=== PATIENT | female | born 1995 | race American Indian/Alaskan Native ===

== ENCOUNTER 2017-11-18 12:30 | Emergency (ER) | payer MEDICAID ==
[2017-11-18 12:35] VITALS: PULSE 72; TEMP 98.7
--- NOTE | 2017-11-18 13:17 | C.PDOC ---
History Of Present Illness 22 y/o F p/w gingival swelling and pain that was gradual in onset but really began to hurt patient last night. She denies fever, chills, drooling, or trauma. States she has had teeth pulled in past and does not regularly see dentist. Time Seen by Provider: 11/18/17 12:43 Chief Complaint (Nursing): ENT Problem Past Medical History Vital Signs: Last Vital Signs Temp 98.7 F 11/18/17 12:33 Pulse 72 11/18/17 12:33 Resp 18 11/18/17 12:33 BP 110/74 11/18/17 12:33 Pulse Ox 100 11/18/17 12:33 - [facility] Procedures REMOV INTRALUM VAG FB (02/19/13) Family History: States: Unknown Family Hx - Social History Hx Tobacco Use: No Hx Alcohol Use: Yes Hx Substance Use: No - Immunization History Hx Tetanus Toxoid Vaccination: No Hx Influenza Vaccination: No Hx Pneumococcal Vaccination: No Review Of Systems Except As Marked, All Systems Reviewed And Found Negative. Constitutional: Negative for: Fever Respiratory: Negative for: Shortness of Breath Physical Exam - Physical Exam Additional Physical Exam Comments: Gen: NAD Head: NC ENT: L lower gingiva on posterior surface of teeth with erythema and edema. Tenderness to adjacent tooth. ED Course And Treatment O2 Sat by Pulse Oximetry: 100 Medical Decision Making Medical Decision Making: Will start antibiotics, and patient states she will follow up with dental. Disposition - Disposition Disposition: HOME/ ROUTINE Disposition Time: 13:16 Condition: STABLE Prescriptions: Clindamycin [Cleocin] 300 mg PO QID #28 cap Ibuprofen [Motrin] 1 tab PO Q6 #30 tab Instructions: Dental Abscess (ED) - Clinical Impression Clinical Impression: Pain, dental
[2017-11-18 13:21] VITALS: BP 128/75; RESP 16; O2SAT 98
== END 2017-11-18 13:20 | disposition home or self-care (01) ==
LOC: C.ER 12:30
DX: K08.89 Other specified disorders of teeth and supporting structures (principal)

== ENCOUNTER 2018-03-16 15:27 | Emergency (ER) | payer MEDICAID ==
[2018-03-16 15:48] VITALS: BP 109/65; PULSE 70; TEMP 98.4; O2SAT 100
--- NOTE | 2018-03-16 15:57 | C.PDOC ---
History Of Present Illness 22 y/o female who presents to the ED with complaints of right foot and ankle pain s/p twisting ankle while walking at approx 2:45pm today. She states there was a hole in the ground her foot got caught in. Patient denies other injuries , sensory changes. No other physical complaints. Time Seen by Provider: 03/16/18 15:33 Chief Complaint (Nursing): Lower Extremity Problem/Injury History Per: Patient History/Exam Limitations: no limitations Onset/Duration Of Symptoms: Hrs (2:45pm) Current Symptoms Are (Timing): Still Present Severity: Moderate Recent travel outside of the [place]: No - Ankle/Foot Description Of Injury: Twisted Past Medical History Reviewed: Historical Data, Nursing Documentation, Vital Signs Vital Signs: Last Vital Signs Temp 98.4 F 03/16/18 15:45 Pulse 70 03/16/18 15:45 Resp 20 03/16/18 17:15 BP 109/65 03/16/18 15:45 Pulse Ox 100 03/16/18 16:44 - Medical History PMH: No Chronic Diseases Surgical History: No Surg Hx - [facility] Procedures REMOV INTRALUM VAG FB (02/19/13) Family History: States: No Known Family Hx - Social History Hx Tobacco Use: No Hx Alcohol Use: Yes Hx Substance Use: No - Immunization History Hx Tetanus Toxoid Vaccination: No Hx Influenza Vaccination: No Hx Pneumococcal Vaccination: No Review Of Systems Constitutional: Negative for: Fever Musculoskeletal: Positive for: Foot Pain (right foot and right ankle pain) Skin: Negative for: Rash Neurological: Negative for: Weakness, Numbness Physical Exam - Physical Exam Appears: Well, Non-toxic, Other (in mild pain ) Skin: Normal Color, Warm, Dry, No Ecchymosis Head: Atraumatic, Normacephalic Cardiovascular: Rhythm Regular Respiratory: Normal Breath Sounds, No Rales, No Rhonchi, No Wheezing Extremity: Normal ROM (right toes intact with full range of motion), Tenderness (tenderness to palpation at right lateral malleolus), No Pedal Edema, No Calf Tenderness, Capillary Refill (< 2 sec all digits ), No Deformity, Swelling ( moderate sewlling at right lateral malleolus), Other (right ankle mild ecchymosis at lateral malleolus) Pulses: Right Dorsalis Pedis: Normal Neurological/Psych: Oriented x3, Normal Sensation ED Course And Treatment O2 Sat by Pulse Oximetry: 100 (RA) Pulse Ox Interpretation: Normal - Other Rad Right foot XR X-Ray: Interpreted by Me, Viewed By Me Interpretation: PROCEDURE: Right Foot Radiographs. HISTORY: right foot pain after fall. COMPARISON: None. FINDINGS: BONES: Bone alignment and mineralization are normal. There is no acute displaced fracture or bone destruction. JOINTS: Normal. SOFT TISSUES: Normal. OTHER FINDINGS: None. IMPRESSION: No acute fracture or dislocation. Right ankle XR X-Ray: Interpreted by Me, Viewed By Me Interpretation: PROCEDURE: Right Ankle Radiographs. HISTORY: Right ankle pain and swelling after fall. COMPARISON: None. FINDINGS: BONES: Bone alignment and mineralization are normal. There is no acute displaced fracture or bone destruction. JOINTS: Normal. Ankle mortise maintained. Talar dome intact. SOFT TISSUES: There is moderate lateral soft tissue swelling. OTHER FINDINGS: None. IMPRESSION: No acute fracture or dislocation. Moderate lateral soft tissue swelling. Progress Note: Patient given PO Tylenol. Xrays of right ankle and foot ordered and reviewed. Xrays neg for acute bony injury. Patient placed in tc wrap, air cast and given crutches and instruction by machine tool technology instructor and checked by me. Rx for pain medication given, and patient instructed to follow up with orthopedics/ podiatry within 1 week. She understands she should return to ED if symptoms worsen. Reevaluation Time: 16:45 Reassessment Condition: Improved Disposition Counseled Patient/Family Regarding: Studies Performed, Diagnosis, Need For Followup, Rx Given - Disposition Referrals: Oliverio Carcamo III, MD [Staff Provider] - [facility]iatry Clinic [Outside] Disposition: HOME/ ROUTINE Disposition Time: 16:45 Condition: STABLE Additional Instructions: FOLLOW UP WITH ORTHOPEDICS OR PODIATRY WITHIN 1 WEEK USE MEDICATION NEEDED ELEVATE YOUR ANKLE MUCH POSSIBLE RETURN TO EMERGENCY ROOM IF SYMPTOMS WORSEN Prescriptions: Naproxen 375 mg PO BID PRN #20 tablet PRN Reason: pain Instructions: Ankle Sprain (DC) Forms: [employer] (French) Print Language: WALLISIAN - POA Present On Arrival: Falls Or Trauma - Clinical Impression Clinical Impression: Right ankle sprain - Scribe Statement The provider has reviewed the documentation as recorded by the Scribe Maris Martinez All medical record entries made by the Scribe were at my direction and personally dictated by me. I have reviewed the chart and agree that the record accurately reflects my personal performance of the history, physical exam, medical decision making, and the department course for this patient. I have also personally directed, reviewed, and agree with the discharge instructions and disposition.
--- NOTE | 2018-03-16 16:15 | RAD ---
PROCEDURE: Right Ankle Radiographs. HISTORY: Right ankle pain and swelling after fall COMPARISON: None FINDINGS: BONES: Bone alignment and mineralization are normal. There is no acute displaced fracture or bone destruction. JOINTS: Normal. Ankle mortise maintained. Talar dome intact SOFT TISSUES: There is moderate lateral soft tissue swelling. OTHER FINDINGS: None. IMPRESSION: No acute fracture or dislocation. Moderate lateral soft tissue swelling.
--- NOTE | 2018-03-16 16:16 | RAD ---
PROCEDURE: Right Foot Radiographs. HISTORY: right foot pain after fall COMPARISON: None. FINDINGS: BONES: Bone alignment and mineralization are normal. There is no acute displaced fracture or bone destruction. JOINTS: Normal. SOFT TISSUES: Normal. OTHER FINDINGS: None. IMPRESSION: No acute fracture or dislocation.
[2018-03-16 17:16] VITALS: RESP 20
== END 2018-03-16 17:15 | disposition home or self-care (01) ==
LOC: C.ER 15:27
DX: S93.401A Sprain of unspecified ligament of right ankle, initial encounter (principal); X50.1XXA Overexertion from prolonged static or awkward postures, initial encounter; Y93.01 Activity, walking, marching and hiking; Y92.480 Sidewalk as the place of occurrence of the external cause

== ENCOUNTER 2018-03-30 18:40 | Emergency (ER) | payer MEDICAID ==
[2018-03-30 18:46] VITALS: BP 111/74; PULSE 60; RESP 18; TEMP 97.3; O2SAT 100
--- NOTE | 2018-03-30 19:29 | C.PDOC ---
History Of Present Illness 22 y/o female presents to ED with c/o nausea associated with lightheadedness since earlier today. Patient was seen at ED 1 week ago for swollen ankle and states today she had symptoms constantly. Patient reports normal po intake and denies fever, chills, vomiting, abdominal pain or any other complaints at this time. Time Seen by Provider: 03/30/18 19:14 Chief Complaint (Nursing): GI Problem History Per: Patient History/Exam Limitations: no limitations Onset/Duration Of Symptoms: Hrs Current Symptoms Are (Timing): Still Present Associated Symptoms: Nausea Past Medical History Reviewed: Historical Data, Nursing Documentation, Vital Signs Vital Signs: Last Vital Signs Temp 97.3 F L 03/30/18 18:44 Pulse 60 03/30/18 18:44 Resp 18 03/30/18 18:44 BP 111/74 03/30/18 18:44 Pulse Ox 100 03/30/18 20:08 - Medical History PMH: No Chronic Diseases Surgical History: No Surg Hx - [facility] Procedures REMOV INTRALUM VAG FB (02/19/13) Family History: States: No Known Family Hx - Social History Hx Tobacco Use: No Hx Alcohol Use: No Hx Substance Use: No - Immunization History Hx Tetanus Toxoid Vaccination: No Hx Influenza Vaccination: No Hx Pneumococcal Vaccination: No Review Of Systems Constitutional: Negative for: Fever, Chills Gastrointestinal: Positive for: Nausea. Negative for: Vomiting, Abdominal Pain , Diarrhea Genitourinary: Negative for: Dysuria Skin: Negative for: Rash Physical Exam - Physical Exam Appears: Non-toxic, No Acute Distress Skin: Warm, Dry, No Rash Head: Atraumatic, Normacephalic Eye(s): bilateral: Normal Inspection Oral Mucosa: Moist Neck: Normal ROM, Supple Cardiovascular: Rhythm Regular Respiratory: Normal Breath Sounds, No Rales, No Rhonchi, No Wheezing Gastrointestinal/Abdominal: Soft, No Tenderness, No Guarding, No Rebound Back: No CVA Tenderness, No Paraspinal Tenderness Neurological/Psych: Oriented x3, Normal Speech ED Course And Treatment O2 Sat by Pulse Oximetry: 100 (RA) Pulse Ox Interpretation: Normal Medical Decision Making Medical Decision Making: Patient refused urine test. Patient states that she only wants medication for nausea and a work. Disposition - Disposition Referrals: [facility] at [facility] [Outside] Disposition: HOME/ ROUTINE Disposition Time: 19:28 Condition: GOOD Additional Instructions: Follow up with the medical doctor within 1-2 days. Return if worsened. 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 - Scribe Statement The provider has reviewed the documentation as recorded by the Barrettibdayanna Resendez All medical record entries made by the Dell were at my direction and personally dictated by me. I have reviewed the chart and agree that the record accurately reflects my personal performance of the history, physical exam, medical decision making, and the department course for this patient. I have also personally directed, reviewed, and agree with the discharge instructions and disposition.
== END 2018-03-30 19:39 | disposition home or self-care (01) ==
LOC: C.ER 18:40
DX: R11.0 Nausea (principal)

== ENCOUNTER 2019-02-02 14:08 | Emergency (ER) | payer OTHER, MEDICAID ==
[2019-02-02 14:16] VITALS: BMI 27.7
[2019-02-02 14:26] VITALS: RESP 17
[2019-02-02] MEDS ORDERED: Bacitracin 500 Units/gm Oint Foilpak UD TOP ONE (15:04)
[2019-02-02] MEDS ORDERED: Bacitracin 500 Units/gm Oint Foilpak UD ONE (15:14)
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
[2019-02-02] MEDS ORDERED: Naproxen 550 mg Tab PO STA (16:19)
[2019-02-02] MEDS ORDERED: Naproxen 550 mg Tab PO ONE ×2 (16:34→16:35)
[2019-02-02 16:39] VITALS: BP 110/64; PULSE 72; TEMP 98.6
[2019-02-02 19:22] VITALS: O2SAT 97
== END 2019-02-02 16:47 | disposition home or self-care (01) ==
LOC: C.ER 14:08
DX: M79.10 Myalgia, unspecified site (principal); V49.9XXA Car occupant (driver) (passenger) injured in unspecified traffic accident, initial encounter